=== PATIENT | female | born 1980 | race African-American/Black ===

== ENCOUNTER 2017-03-25 16:31 | Emergency (ER) | payer OTHER ==
--- NOTE | ~2017-03-25 | EKG ---
PATIENT: DOLORES CHIANG UNIT #: [id number] Ventricular Rate: 119 BPM Atrial Rate: 119 BPM P-R Interval: 146 ms QRS Duration: 92 ms Q-T Interval: 342 ms QTC Calculation(Bezet): 481 ms P [place]: 54 degrees Calculated R [place]: 10 degrees Calculated T [place]: 33 degrees Diagnosis Line: Sinus tachycardia Diagnosis Line: Otherwise normal ECG Diagnosis Line: No previous ECGs available Diagnosis Line: Confirmed by ARSEN PARDO MD ([id number]) on Diagnosis Line: 03/30/2017 9:00:53 AM INTERPRETING MD: EDVIN VAZQUEZ
--- NOTE | ~2017-03-25 | CT16 ---
[facility] A Service of [facility] RADIOLOGY TEXT RESULTS PATIENT: DOLORES CHIANG LOCATION: SED : 82 UNIT #: [id number] AGE: [address]: Lisa Mejias MD SEX: F ORDER DR: [id number] [place] [id number] E MR#: [id number] Acc #: [id number] NAME: DOLORES CHIANG : 1980 SEX: F STUDY DATE/TIME: 03/25/2017 18:14 UNIT: SED ROOM: STUDY DESCRIPTION: CT Angio Chest for PE Attending Physician: Lisa Mejias M.D. Ordering Physician: Lisa Mejias M.D. Primary Care Physician: Primary Care Physician No MEDICAL IMAGING REPORT This report is preliminary unless electronic signature is present. EXAM CT chest with contrast, pulmonary arteriography protocol, 03/25/2017 HISTORY 36-year-old female in the ED complaining of 1-day history of left side chest pain. Elevated D-dimer. Morbid obesity. TECHNIQUE CT examination of the chest was performed with IV contrast using pulmonary arteriography protocol. CTA images of the pulmonary arteries were reformatted in multiple planes. Technical limitations include x-ray attenuation related to the patient's body habitus. This CT exam was performed with one or more of the following radiation dose reduction techniques: automatic exposure control, adjustment of mA and/or kV according to patient size, and iterative reconstruction. FINDINGS The initial study is nondiagnostic due to poor contrast opacification of the pulmonary arteries. The study was repeated with changes to bolus timing and vascular attenuation triggering, but there is no improvement on the second series. No large pulmonary embolism is present within the main pulmonary arteries. The central, mid and peripheral pulmonary arteries cannot be assessed. Thoracic aorta is normal in caliber. Heart size is normal, there is no pericardial effusion. The lungs are expanded and clear. There is no pleural effusion. No mass or adenopathy within the chest. Limited upper abdominal images are unremarkable. IMPRESSION 1. Nondiagnostic examination for the exclusion of pulmonary embolism, despite repeat imaging. [facility] A Service of [facility] RADIOLOGY TEXT RESULTS PATIENT: DOLORES CHIANG LOCATION: SED : [birth year] UNIT #: [id number] AGE: [address]: Lisa Mejias MD SEX: F ORDER DR: 2. Negative chest CT examination. Normal aorta, heart and great vessels. The lungs are clear. No pleural or pericardial effusion. Dictated by... Negro Torres M.D. THIS IS AN ELECTRONICALLY VERIFIED REPORT Negro Torres M.D. at 03/27/2017 8:50 AM Ron TD: 03/26/2017 10:46 JOB #: [id number] MEDICAL IMAGING REPORT Page 1 of 1
[2017-03-25] MEDS ORDERED: NO MEDICATIONS (16:49)
[2017-03-25 17:20] LABS: BASOPHIL# 0.1 X10e3 (0-0.3); BASOPHIL% 0.5 % (0-2.5); EOSINOPHIL# 0.2 X10e3 (0-0.7); EOSINOPHIL% 1.6 % (0.0-7.0); HEMOGLOBIN 10.7 gm/dL (12.0-16.0); LYMPHOCYTE# 2.1 X10e3 (1.0-3.5); LYMPHOCYTE% 20.2 % (17.0-45.0); MEAN CELL VOLUME 74.1 FL (83-96); MEAN CORPUSCULAR HEMOGLOBIN 23.2 PG (28-34); MEAN CORPUSCULAR HGB CONC 31.3 g/dL (30-36); MEAN PLATELET VOLUME 7.4 FL (6.5-11.5); MONOCYTE# 0.4 X10e3 (0-1.0); MONOCYTE% 4.2 % (3.0-12.0); NEUTROPHIL# 7.5 X10e3 (1.5-7.1); NEUTROPHIL% 73.5 % (40-75); PLATELET COUNT 355 X10e3 (140-420); RED BLOOD COUNT 4.59 X10e (3.90-5.30); RED CELL DISTRIBUTION WIDTH 16.5 % (11.0-15.5); WHITE BLOOD COUNT 10.2 X10e3 (4.0-10.5)
[2017-03-25 17:22] LABS: DIFF IND NO
[2017-03-25 17:30] LABS: INR 1.1; PROTHROMBIN TIME (PATIENT) 12.9 SECONDS (9.5-12.4)
[2017-03-25 17:39] LABS: POC - CKMB 44.1 ng/mL (0.0-7.9); POC - TROPONIN <0.05 ng/mL (<=0.05)
[2017-03-25 17:41] LABS: ALBUMIN SERUM 3.3 g/dL (3.5-5.0); BILIRUBIN, DIRECT 0.1 mg/dL (0.0-0.2); BILIRUBIN,INDIRECT 0.6 mg/dL (0.0-0.9); BILIRUBIN,TOTAL 0.7 mg/dL (0.2-2.0); BUN/CREATININE RATIO 11.42; CALCIUM SERUM 8.8 mg/dL (8.4-10.2); CREATININE SERUM 0.7 mg/dL (0.6-1.4); GLOM FILT RATE Estimated 130.1 mL/min (>60); POTASSIUM 3.7 mmol/L (3.5-5.1); PROTEIN TOTAL SERUM 7.8 g/dL (6.0-8.3)
== END 2017-03-25 19:43 | disposition left against medical advice (07) ==
LOC: SED 16:31
PROVIDERS: Student in an Organized Health Care Education/Training Program
DX: R07.81 Pleurodynia (principal); R06.02 Shortness of breath; R00.0 Tachycardia, unspecified
CPT/HCPCS: 36415; 71275; 80048; 80076; 82553; 83880; 84484; 84703; 85025; 85379; 85610; 85730; 93005; 99285; J1644; J1650; Q9967